=== PATIENT | male | born 1980 | race Caucasian/White ===

== ENCOUNTER 2023-12-05 21:20 | Inpatient (IN) | payer OTHER, SELFPAY ==
[2023-12-05] VITALS (8 sets, daily range): BP systolic 118–138; BP diastolic 74–105; BMI 26.2; BMI 26.5
--- NOTE | 2023-12-05 17:36 | ED.GENMED ---
History of Present Illness
General
Chief Complaint: Heart Rate Problem
Time Seen by Provider: 12/05/23 17:31
History of Present Illness
History of Present Illness:
HPI: The patient went to urgent care as he was having cough and some degree of shortness of breath. While there, he was found to be tachycardic and EMS was called. He was given albuterol with only some improvement of symptoms. He has a prominent
cough. He is found to be febrile upon arrival here.
EXAM:
GENERAL: Well appearing in no distress
HEENT: Moist oral mucosa
CARDIOVASCULAR: No murmurs, intermittently tachycardic heart rate, intermittently irregular rhythm, No chest wall tenderness
PULMONARY: No respiratory distress, breath sounds are somewhat diminished at the bases with no definite wheeze
ABDOMEN: Soft with no peritoneal signs, no tenderness
NEUROLOGIC: Excellent strength all extremities, no coordination deficits
PSYCHIATRIC: Appropriate mental status, normal insight and judgement
EXTREMITIES: Nontender, no edema, moves all extremities equally
SKIN: No rash, no lesions
TIME OF INITIAL ENCOUNTER: 5:30 PM
NUMBER AND COMPLEXITY OF PROBLEMS ADDRESSED AT THE ENCOUNTER
� Chronic conditions affecting care: No significant past medical history but does have a history of asthma
� Acute Exacerbation and/or Progression of Chronic Illness: This is an acute problem
� Differential Diagnosis includes: Reactive airway disease, acute asthma exacerbation, new onset A-fib, pneumonia, viral syndrome
AMOUNT AND/OR COMPLEXITY OF DATA TO BE REVIEWED AND ANALYZED
� I performed an independent evaluation of and my interpretation is:
EKG: A-fib 113 along with runs of sinus rhythm
CT:
X-rays: Chest x-ray suggest right middle lobe pneumonia
Laboratory Studies: Troponin negative, COVID-negative, white count and hemoglobin are normal, chemistries unremarkable, TSH unremarkable, magnesium low normal
Other:
� Review of other/old records: I reviewed the echo from 2019 which showed no significant abnormality read by Dr. Benson
� Clinical information was obtained by an independent historian: I spoke to at bedside
� Prescriptions/Medications Considered but not given: Considered albuterol however there is no significant wheezing he intermittently has rates near 200; held off on anticoagulation for now as he has a CHADS2 Vasc score of 0
� Further testing considered but not performed:
RISK OF COMPLICATIONS AND/OR MORBIDITY OR MORTALITY OF PATIENT MANAGEMENT
� Social determinants of health affecting care: Lives at home
� Discussion with other providers: I discussed case with Dr. Stover who recommends 30-day course of Eliquis if he were to convert in the ER. Dr. Pepe for admission as remains in atrial fibrillation and appears to be more
symptomatic related to pneumonia as opposed A-fib..
� Escalation of care including admission/observation vs risk of discharge considered: Although at times the patient is in sinus he frequently goes back into an atrial tachycardia with rates in the 180s to 190s. He was placed on
Cardizem bolus and drip and his fever was treated with Tylenol and he was also given IV fluids. He is heart rate is markedly improved but remains in an atrial fibrillation rhythm. Will continue Cardizem.
Phy Exam
Physical Exam
Physical Exam:
See HPI
Sepsis
Sepsis Screening
Sepsis Assessment: Sepsis
Sepsis Screen
Sepsis Screen: Sepsis
Date: 12/05/23
Time: 19:50
Course
Orders/Labs/Results
Orders:
Orders
12/05/23 17:35
Acetaminophen [Tylenol] 1,000 mg .ROUTE .STK-MED ONE
Acetaminophen [Tylenol] 1,000 mg PO NOW STA
CR Chest Portable - 1 View Urgent
Comment:
Reason For Exam: sob cough
Reason Study Needs to be Portable: Unable to Transport
12/05/23 17:36
0.9% Sodium Chloride 1000 ml [Nss] 1,000 ml IV BOLUS
Diltiazem 125 mg/125 ml Nss [Cardizem] 125 mg in 125 ml IV NOW
Initial dose in mg/hr, then titrate:: 5
Titrate to keep:: Heart rate 80-100 bpm
Titrate by mg/hr:: 5 mg/hr
Frequency of titrations (minutes):: 15
Maximum dose in mg/hr:: 15
Diltiazem HCl [Cardizem] 10 mg IV NOW STA
12/05/23 17:39
Basic Metabolic Panel Urgent
Complete Blood Count/With Diff Urgent
TSH Reflex To Free T4 Urgent
Troponin I Urgent
Blood Culture Urgent
KELLEE Source: Blood/Venous
Specimen Description:
Influenza A+B Rapid Molecular Urgent
KELLEE Source: Nasal Swab
Specimen Description:
12/05/23 17:45
Blood Culture Routine
KELLEE Source: Blood/Venous
Specimen Description:
12/05/23 17:59
COVID-19 Antigen Urgent
Source: Nasal Swab
Magnesium Urgent
Comment: ADD ON
Potassium Urgent
12/05/23 18:51
Add On- LAB Urgent
Tests Added?: tsh reflex fT4
Azithromycin 500 mg/250 ml [Zithromax Infusion] 500 mg in 250 ml IV NOW
CefTRIAXone [Rocephin] 1,000 mg IV NOW STA
12/05/23 19:07
Electrocardiogram (*1) Urgent
Reason for Study: Shortness of Breath
EKG- Treatment ONCE
12/05/23 19:10
Add On- LAB Urgent
Tests Added?: magnesium
12/05/23 19:34
Admit/Transfer Patient As Directed
Co-Sign Provider:
Level of Care: Inpatient admission
Assign to:: IMU- Intermediate Care
Physician / Group: Afshin
Diagnosis: Pneumonia, Sepsis, A-Fib
Reason for Hospitalization: Pneumonia, Sepsis, A-Fib
Expected length of stay greater than two midnights?: Yes
ELOS- Estimated Length of Stay in days: 3
I certify the patient meets the requirements for IP care: Yes
PRN Pain Medication Management As Directed
May give lesser potent ordered pain med per pt: Yes
preference::
Protocol:: Medication orders for pain may be administered in a
manner that supports deferring to patient preference
when the pt is:
- Requesting an ordered lesser potent pain medication.
Least to most potent pain medications are defined
as: acetaminophen < NSAID < tramadol < opioids
(morphine, oxycodone, hydromorphone).
- Requesting a lesser dose of the same medication IF
ORDERED.
- Requesting a less intrusive route of administration
if both routes are prescribed by the provider (PO <
IV).
12/05/23 19:35
Code Status As Directed
Resuscitation Status: Full Code
Abnormal Lab Results
12/05/23
17:39
Absolute Lymphs (auto) 1.0 L 10^3/uL
(1.2-3.4)
Neutrophils % 75.4 H %
(42.2-75.2)
Lymphocytes % 14.9 L %
(20.5-51.1)
Glucose 102 H mg/dl
(70-99)
Calcium 8.3 L mg/dl
(8.4-10.2)
12/05/23 17:39
12/05/23 17:59
Vital Signs
Initial and Last Documented VS:
Initial Vital Signs
Pulse Resp Pulse Ox
130 36 96
12/05/23 17:29 12/05/23 17:29 12/05/23 17:29
Last Documented Vital Signs
Temp Pulse Resp BP Pulse Ox
99.7 F 105 29 123/92 94
12/05/23 19:09 12/05/23 18:45 12/05/23 18:45 12/05/23 18:00 12/05/23 18:45
*Critical Care Note
Total Time (30-74mins, 75-104mins- exclusive of procedures): 45 minutes
comment:
The patient's heart rate approaches 200 transiently. He was placed on Cardizem bolus and drip and vital signs were very closely monitored. I also emergently discussed case with cardiology.
ED Attending Note
-
Portions of this chart may have been created with voice recognition software.� Occasional wrong word or��sound alike� substitutions may have occurred due to the inherent limitations of voice recognition software.
Discharge Plan
Departure
Patient Disposition: Admit
Date of Disposition: 12/05/23
Time of Disposition: 19:44
Presentation/result/management discussed w/ accepting MD/DO: Hospitalist
Discharge Problem:
Pneumonia
Prescriptions:
No Action
cetirizine 10 mg Tablet
10 mg PO HS
atorvastatin 10 mg Tablet
10 mg PO HS
Theragen Tablet
1 tab PO DAILY
albuterol sulfate 90 mcg/actuation Hfa Aerosol Inhaler
2 puff INHALATION R Q6HPRN PRN (Reason: sob)
escitalopram oxalate 20 mg Tablet
20 mg PO HS
mesalamine 1,000 mg Suppository
1 g CO HS
mesalamine 1.2 gram Tablet,Delayed Release (Dr/Ec)
3.6 g PO QPM
Visbiome 112.5 billion cell Capsule
1 cap PO DAILY
fluticasone furoate-vilanterol [Breo Ellipta] 200-25 mcg/dose Blister With Device
1 inh INHALATION R DAILYPRN PRN (Reason: sob)
Referrals:
Dary Patel MD [Family Provider] -
Interventions
Interventions:
*Risk Screen - Suicide Last Done: 12/05/23 17:48
*General Assessment Last Done: 12/05/23 17:48
*Neglect/Abuse Screening Last Done: 12/05/23 17:48
ED- Fall Risk Assessment Last Done: 12/05/23 17:50
*ED COVID-19 Vaccine History Last Done: 12/05/23 17:48
ED- Cardiac Assessment Last Done: 12/05/23 17:50
ED- Pulmonary Assessment Last Done: 12/05/23 17:50
Discharge Date and Time
Print Language: MACEDONIAN
[2023-12-05] MEDS: TYLENOL 1000 MG PO (17:37)
[2023-12-05] MEDS: NSS 1000 IV (17:38)
[2023-12-05] MEDS: CARDIZEM 10 MG IV (17:43)
[2023-12-05] MEDS: CARDIZEM 125 IV (17:44)
[2023-12-05 17:46] LABS: % Basophils 0.4 % (0-2); % Eosinophils 0.1 % (0-6); % Immature Granulocytes 0.3 % (0-0.5); % Lymphocytes 14.9 % (20.5-51.1); % Monocytes 8.9 % (1.7-9.3); % Neutrophils 75.4 % (42.2-75.2); Absolute Monocytes 0.6 10^3/uL (0.1-0.6); Absolute Neutrophils 5.2 10^3/uL (1.4-6.5); Hematocrit 40.8 % (39.0-52.0); Hemoglobin 14.3 g/dL (13.0-18.0); Mean Corpuscular Hgb 30.4 pg (27.0-31.0); Mean Corpuscular Volume 86.8 fL (80.0-94.0); Mean Platelet Volume 9.8 fL (7.4-10.4); Nucleated Red Blood Cells % 0 % (-); Platelet Count 183 10^3/uL (130-400); Red Cell Dist. Width 11.9 % (11.5-14.5); White Blood Cell Count 6.9 10^3/uL (4.8-10.8)
[2023-12-05 18:00] LABS: Blood Urea Nitrogen 20 mg/dl (9-20); Calcium 8.3 mg/dl (8.4-10.2); Carbon Dioxide 22 mmol/L (22-30); Chloride 104 mmol/L (98-107); Estimated Creatinine Clearance 103 ml/min; Glucose 102 mg/dl (70-99); Sodium 139 mmol/L (135-145); eGFR > 60.00
[2023-12-05 18:02] LABS: COVID-19 Antigen Negative (Negative)
[2023-12-05 18:09] LABS: Troponin I < 0.012 ng/ml
[2023-12-05 18:16] LABS: Potassium 3.7 mmol/L (3.5-5.1)
[2023-12-05] MEDS: ZITHROMAX INFUSION 250 IV (19:00)
[2023-12-05] MEDS: ROCEPHIN 1000 MG IV (19:00)
[2023-12-05 19:35] LABS: TSH Reflex To Free T4 1.33 uIU/ml (0.47-4.68)
--- NOTE | 2023-12-05 19:38 | HPS.HSE ---
Family Physician
-
Family Physician: Dary Patel
Chief Complaint
-
SOB
History of Present Illness
Patient is a 43y M with PMH significant for asthma and IBD who presents to ED complaining of SOB and wheezing x 3 days. Patient states that his symptoms started on Tuesday with SOB and audible wheezing. His symptoms have waxed and waned since
that time - becoming markedly worse today and prompting him to present to Urgent Care. At Urgent Care, patient was noted to be tachycardic with rate in the 160s and was referred immediately to the ED.
Patient notes occasional, non-productive cough. He has headache, fevers / chills and occasional sense of heart racing.
No chest pain. No N/V/D. No urinary complaints. No muscle / joint aches.
Patient's daughter was apparently ill with respiratory complaints about 2 weeks ago. She had coughing paroxysms that led to 'spitting up'.
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
Patient further reports construction ongoing in his home recently including dust / debris and paint fumes.
Medical History
Past Medical History
Past Medical History: Reports Other
Additional Past Medical History:
Exercise-Induced Asthma
Anxiety / Depression
IBD - ? UC
Dyslipidemia
Past Surgical History: Reports None
Social History
Unable to obtain full social history at this time due to: Dementia
Tobacco: Non-smoker
Alcohol: None
Drug: None
Personal:
Living: With Family
Family History
Family History: Other (Mother: Premature CAD, Rheumatoid Arthritis Father: Depression)
Allergies / Home Medications
Allergies reflects when Allergies were last updated in [employer]
Home Medications with original date entered in [employer]
Allergy/Medication List:
Allergies
Allergy/AdvReac Type Severity Reaction Status Date / Time
metaxalone [From Skelaxin] Allergy Rash Verified 12/05/23 17:29
Sulfa (Sulfonamide Allergy Rash Verified 12/05/23 17:29
Antibiotics)
Home Medications
Lactobac no.2-Bifidobac no.1-S. thermo 112.5 billion cell capsule (Visbiome) 1 cap PO DAILY 12/05/23
albuterol sulfate 90 mcg/actuation aerosol inhaler 2 puff inhalation R Q6HPRN PRN sob 12/05/23
atorvastatin 10 mg tablet 10 mg PO HS 12/05/23
cetirizine 10 mg tablet 10 mg PO HS 12/05/23
escitalopram oxalate 20 mg tablet 20 mg PO HS 12/05/23
fluticasone furoate 200 mcg-vilanterol 25 mcg/dose inhalation powder (Breo Ellipta) 1 inh inhalation R DAILYPRN PRN sob 12/05/23
mesalamine 1,000 mg rectal suppository 1 g CA HS 12/05/23
mesalamine 1.2 gram tablet,delayed release 3.6 g PO QPM 12/05/23
therapeutic multivitamin 1 tab PO DAILY 12/05/23
Review of Systems
-
History Source: Patient
A 12 point ROS was completed and negative except as noted: Yes
Constitutional: Reports Fever, Fatigue and Chills
EENT: Denies Sore Throat
Respiratory: Reports Cough and Trouble Breathing
Cardiac: Reports Palpitations; Denies Chest Pain, Diaphoresis or Syncope
Abdomen/GI: Denies Abdominal Pain, Nausea, Vomiting or Diarrhea
: Denies Dysuria or Flank Pain
Musculoskeletal: Denies Joint Pain or Edema
Neurological: Reports Headache; Denies Dizzy
Psych: Denies Depression or Anxiety
Physical Exam
Vital Signs
Vital Signs
Temp Pulse Resp BP Pulse Ox
99.7 F 105 29 123/92 94
12/05/23 19:09 12/05/23 18:45 12/05/23 18:45 12/05/23 18:00 12/05/23 18:45
Physical Exam
General: Other (43y M somewhat ill-appearing. In mild distress due to dyspnea.)
HEENT: Moist mucous membranes
Respiratory: Other (Diminished breath sounds throughout. No audible wheeze / rales / rhonchi at present.)
Cardiac: S1/S2, Irregular Rhythm and Tachycardia; No Murmur
GI: Soft, Non Tender, Non Distended and Normal Bowel Sounds
Musculoskeletal: No Clubbing, No Cyanosis and No Edema
Neuro: AO x 3
Laboratory Results
-
12/05/23 17:39
12/05/23 17:59
Laboratory Results
Total Bilirubin Cancelled 12/05/23 17:39
AST Cancelled 12/05/23 17:39
ALT Cancelled 12/05/23 17:39
Alkaline Phosphatase Cancelled 12/05/23 17:39
Troponin I < 0.012 ng/ml 12/05/23 17:39
Impression/Plan
-
A/P: Patient is a 43y M with PMH significant for asthma and IBD who presents to ED complaining of cough and SOB x 3-4 days.
RLL Pneumonia
Sepsis secondary to the above
- Admit for further evaluation and treatment.
- Patient presents with fever and tachycardia with symptoms and CXR consistent with pneumonia.
- Abx with ceftriaxone and doxycycline for now.
- Follow-up culture data / serologies / etc.
- Supportive care including IVFs, O2 support, etc.
- Follow for clinical improvement.
Asthma with Acute Exacerbation - secondary to the above
- Markedly diminished breath sounds at present and patient notes audible wheezing at home.
- IV steroids for now - taper as able / transition to PO.
- Albuterol nebs.
- Follow for clinical improvement.
Atrial Fibrillation - New
- Newly noted A-Fib with RVR in setting of acute illness / sepsis.
- Continue IV diltiazem for now for rate control.
- Will begin Eliquis for now / for at least 6 months.
- Cardiology evaluation.
- May be isolated / 'lone' event due to acute illness, etc.
IBD / UC
- Patient currently undergoing evaluation for formal diagnosis.
- Was scheduled for colonoscopy next week.
- Continue current mesalamine dosing.
- Follow for any acute GI complaints.
DVT Prophylaxis: Eliquis started as noted above.
Code Status: Full
[2023-12-05 19:42] LABS: Magnesium 1.7 mg/dl (1.6-2.3)
[2023-12-05] MEDS: ROWASA, CANASA SUPPOSITORY RECTAL (22:19)
[2023-12-05] MEDS: LR 1000 IV (22:29)
[2023-12-05] MEDS: LIPITOR 10 MG PO (22:30)
[2023-12-05] MEDS: ELIQUIS 5 MG PO (22:30)
[2023-12-05] MEDS: DECADRON 6 MG IV (22:30)
[2023-12-05] MEDS: ZYRTEC 10 MG PO (22:30)
[2023-12-05] MEDS: VIBRAMYCIN 100 MG PO (22:30)
[2023-12-05] MEDS: ROBITUSSIN DM 5 ML PO (22:30)
[2023-12-05] MEDS: LEXAPRO 20 MG PO (22:30)
--- NOTE | 2023-12-05 23:33 | PTCARENOTE ---
pt admitted from the ED, pt is AAOx3- able to make needs known. pt on cardizem gtt @ 15ml/hr, pt in and out of a-fib/NSR. 96% RA, non-productive cough noted, lungs course, tachypneic, SOB on exertion. pt admits to anxiety, having wave of nausea that
passed. PRN robitussin ordered for harsh cough. pt able to walk into bathroom x1 assist without issues. IV fluids hung and infusing. urine specimen collected and sent down to lab. pt oriented to new room, call philip within reach, care ongoing.
[2023-12-06] VITALS (10 sets, daily range): BP systolic 123–152; BP diastolic 67–94; BMI 26.4
--- NOTE | 2023-12-06 04:58 | PTCARENOTE ---
pt remains in NSR throughout the night, rate in 60s, increases with ambulation but back down with rest. notified covering CLERICAL OFFICE WORKER- advised to keep cardizem gtt at 5ml/hr if patient BP and HR tolerating. will monitor both. care ongoing.
[2023-12-06] MEDS: LR 1000 IV ×2 (05:06→12:07)
[2023-12-06] MEDS: DECADRON 6 MG IV (05:06)
[2023-12-06] MEDS: CARDIZEM 125 IV (05:24)
[2023-12-06 05:31] LABS: Hematocrit 38.2 % (39.0-52.0); Hemoglobin 13.2 g/dL (13.0-18.0); Mean Corp Hgb Conc. 34.6 g/dL (33.0-37.0); Mean Corpuscular Hgb 30.3 pg (27.0-31.0); Mean Corpuscular Volume 87.8 fL (80.0-94.0); Mean Platelet Volume 10.3 fL (7.4-10.4); Platelet Count 180 10^3/uL (130-400); Red Blood Cell Count 4.35 10^6/uL (4.70-6.10); Red Cell Dist. Width 12.2 % (11.5-14.5); White Blood Cell Count 5.1 10^3/uL (4.8-10.8)
[2023-12-06 05:57] LABS: Blood Urea Nitrogen 16 mg/dl (9-20); Calcium 8.8 mg/dl (8.4-10.2); Carbon Dioxide 24 mmol/L (22-30); Chloride 106 mmol/L (98-107); Estimated Creatinine Clearance 120 ml/min; Glucose 148 mg/dl (70-99); Potassium 4.8 mmol/L (3.5-5.1); Sodium 141 mmol/L (135-145); eGFR > 60.00
--- NOTE | 2023-12-06 09:01 | CON.CAR ---
Addendum entered and electronically signed by Daniel Chang MD (Ellie) 12/06/23 10:44:
I saw and examined the patient.
The TONG CARRIER's note was reviewed and I agree with the note.
Comment: 43 year old male with asthma, dyslipidemia, UC, and anxiety who presented with shortness of breath, found to have acute pneumonia and atrial fibrillation with rapid ventricular response. Patient reports that he started feeling short of
breath on Tuesday, was taking a lot of albuterol, and finally went to urgent care yesterday. At urgent care they noted his heart rate was 160 and called EMS. Atrial fibrillation broke in the ER after 5 mg IV diltiazem. He denies chest pain,
palpitations, lightheadedness, dizziness, syncope or presyncope. He has no history of atrial fibrillation. He does have hyperlipidemia for which he is on atorvastatin 10 mg daily. He also carries a diagnosis of anxiety and ulcerative colitis. In
terms of family history both parents have ischemic heart disease with bypass surgery. He does not drink alcohol, smoke cigarettes, or use drugs. His reports that he does not snore. On exam he is normotensive, with heart rate in the 60s,
satting well on room air. He is an anxious appearing young male with regular rate and rhythm, no murmurs rubs or gallops, no pedal edema, and decreased breath sounds at the bases bilaterally. Labs are notable for TSH within normal limits and
negative troponin. Review of telemetry shows rate controlled A-fib until about 9:00 last night when he went into sinus rhythm. Heart rates are in the 60s to 70s currently. Twelve-lead ECG from 5 AM today shows normal sinus rhythm with possible
left atrial enlargement and no ischemic changes. Transthoracic echocardiogram is pending.
In summary, this is a 43-year-old male with a history of asthma and ulcerative colitis who presents with new onset atrial fibrillation in the setting of acute pneumonia. His A-fib with RVR was likely triggered by his infection. He does not have
any other clear risk factors for atrial fibrillation. We will check an echocardiogram today. He should have an outpatient sleep study. After discharge, he will continue on diltiazem 120 mg daily. Unfortunately he is not a good candidate for a
pill in the pocket approach because his A-fib is not symptomatic. He should remain on anticoagulation with apixaban 5 mg twice daily for 1 month given chemical cardioversion. He has a [id number] score of 0, so he can stop anticoagulation after 1
month. He should continue on atorvastatin for history of hyperlipidemia. He will call our office to arrange follow-up. I have let the office know to expect his call.
Original Note:
Consultation
Consultation Request
Date/Time Consultation Requested: 12/05/2023 22:00
Date/Time Consultation Performed: 12/06/2023 08:45
Requesting Provider: Dr. Pepe
Performing Provider: SONA Juan for Dr. Chang
Reason for Consultation: Atrial fibrillation with right ventricular response
Medical History
-
Chief Complaint: Shortness of breath
History of Present Illness:
Luis Alfredo Escobar is a 43 year old male with asthma, dyslipidemia, UC, and anxiety who presented with shortness of breath. Initially he presented with shortness of breath and cough to urgent care. He was referred to the ER for HR in the 160s. He presented
in atrial fibrillation with rapid ventricular response. He was started on a diltiazem drip and given apixaban. He is back in sinus rhythm. He also has PNA which is being treated by the primary service. His shortness of breath has improved. He is
having no chest pain.
Past Medical History
Past Medical History: Asthma, Hypercholesterolemia and Psychiatric (Anxiety)
Past Surgical History: Tonsilectomy
Social History
Tobacco: Non-Smoker
Alcohol: None
Personal:
Living: With Family
Employment: Employed (IT)
Family History
Family History: CAD
Allergies / Home Medications
Allergy/AdvReac Type Severity Reaction Status Date / Time
metaxalone [From Skelaxin] Allergy Rash Verified 12/05/23 17:29
Sulfa (Sulfonamide Allergy Rash Verified 12/05/23 17:29
Antibiotics)
�Medication �Instructions �Recorded �Confirmed �Type
Lactobac no.2-Bifidobac no.1-S. 1 cap PO DAILY 12/05/23 12/05/23 History
thermo 112.5 billion cell capsule
(Visbiome)
albuterol sulfate 90 mcg/actuation 2 puff inhalation R Q6HPRN PRN sob 12/05/23 12/05/23 History
aerosol inhaler
atorvastatin 10 mg tablet 10 mg PO HS 12/05/23 12/05/23 History
cetirizine 10 mg tablet 10 mg PO HS 12/05/23 12/05/23 History
escitalopram oxalate 20 mg tablet 20 mg PO HS 12/05/23 12/05/23 History
fluticasone furoate 200 1 inh inhalation R DAILYPRN PRN sob 12/05/23 12/05/23 History
mcg-vilanterol 25 mcg/dose
inhalation powder (Breo Ellipta)
mesalamine 1,000 mg rectal 1 g NJ HS 12/05/23 12/05/23 History
suppository
mesalamine 1.2 gram tablet,delayed 3.6 g PO QPM 12/05/23 12/05/23 History
release
therapeutic multivitamin 1 tab PO DAILY 12/05/23 12/05/23 History
Review of Systems
-
History Source: Patient
All other systems: Negative unless noted
Constitutional: Fever and Fatigue
EENT: No Symptoms
Respiratory: Cough
Cardiac: No Symptoms
Abdomen/GI: No Symptoms
: No Symptoms
Musculoskeletal: No Symptoms
Skin: No Symptoms
Neurological: No Symptoms
Endocrine: No Symptoms
Hematologic/Lymphatic: No Symptoms
Physical Exam
Vital Signs
Temp Pulse Resp BP Pulse Ox
99.0 F 67 27 130/78 96
12/06/23 07:37 12/06/23 06:00 12/06/23 06:00 12/06/23 06:00 12/06/23 06:00
Lab Results
12/06/23 05:17
12/06/23 05:17
Troponin I < 0.012 ng/ml 12/05/23 17:39
Impression / Plan
-
Atrial fibrillation with RVR, new
-Back in sinus rhythm
-Transition to oral diltiazem
-Oral Anticoagulation: Apixaban 5mg BID for one month
-[id number]: score 0 (<del>Heart</del> <del>failure,</del> <del>HTN,</del> <del>age</del> <del>75</del> <del>or</del> <del>more,</del> <del>Diabetes</del> <del>Mellitus,</del> <del>prior</del> <del>Stroke/TIA,</del> <del>Vascular</del>
<del>disease,</del> <del>age</del> <del>65-74,</del> <del>female</del> <del>gender</del>)
PNA, per primary
Asthma, on steriods, per primary
Dyslipidemia, on atorvastatin
Ulcerative colitis, follows with GI
[2023-12-06] MEDS: PROTONIX 40 MG PO (09:10)
[2023-12-06] MEDS: ELIQUIS 5 MG PO ×2 (09:11→20:46)
[2023-12-06] MEDS: VIBRAMYCIN 100 MG PO ×2 (09:11→20:45)
[2023-12-06] MEDS: VISBIOME 1 CAP PO (09:11)
[2023-12-06] MEDS: CARDIZEM CD 120 MG PO (10:08)
--- NOTE | 2023-12-06 12:26 | W.PN.HOSP.TC ---
Today's Communication/Plan
-
Monitor vital signs see plan
Transfer to telemetry
Continue with antibiotics
Echocardiogram
wean steroids
Assessment / Plan
Assessment / Plan
General: No acute distress
HEENT: Moist mucous membranes
Respiratory: Other (Diminished breath sounds throughout. No audible wheeze / rales / rhonchi at present.)
Cardiac: S1/S2, regular Rhythm; No Murmur
GI: Soft, Non Tender, Non Distended and Normal Bowel Sounds
Musculoskeletal: No Clubbing, No Cyanosis and No Edema
Neuro: AO x 3
RLL Pneumonia
Sepsis secondary to the above
- Patient presents with fever and tachycardia with symptoms and CXR consistent with pneumonia.
- Abx with ceftriaxone and doxycycline for now.
- Follow-up culture data / serologies / etc.
pertussis check on admission which is pending
Asthma with Acute Exacerbation - secondary to the above
Slowly improving, continue with Decadron, wean
- Albuterol nebs.
Atrial Fibrillation - New
- Newly noted A-Fib with RVR in setting of acute illness / sepsis.
Now in normal sinus rhythm. Does not have significant CHADVASC. Per cardiology he should be on Eliquis for 1 month and then can stop.
cardiology following
ech0
IBD / UC
- Patient currently undergoing evaluation for formal diagnosis.
- Was scheduled for colonoscopy next week.
- Continue current mesalamine dosing.
- Follow for any acute GI complaints.
DVT Prophylaxis: Eliquis started as noted above.
Code Status: Full
Anticipated Discharge: Within 24 hours
Subjective/Interval History
-
Date of Service: December 06, 2023
denies pain
Objective Data
-
Labs:
Laboratory Results
12/06/23
05:17
WBC 5.1
Hgb 13.2
Hct 38.2 L
Plt Count 180
Sodium 141
Potassium 4.8 D
Chloride 106
Carbon Dioxide 24
BUN 16
Creatinine 0.8
Glucose 148 H
Calcium 8.8
Vital Signs:
Vital Signs
Temp Pulse Resp BP Pulse Ox
98.4 F 67 27 130/78 96
12/06/23 11:38 12/06/23 06:00 12/06/23 06:00 12/06/23 06:00 12/06/23 06:00
I&O
12/05/23 12/06/23 12/07/23
06:59 06:59 06:59
Intake Total 300 / 300
Output Total 400 / 400
Balance -400 / -400 300 / 300
[2023-12-06] MEDS: DECADRON 4 MG IV ×2 (13:33→20:46)
[2023-12-06] MEDS: FLUSH (NSS) 2 FLUSH IV (13:34)
--- NOTE | 2023-12-06 16:13 | CM ---
Patient with Dx RLL Pneumonia, Sepsis, Asthma w Acute Exacerbation, new Afib, IBD/UC. Room air. Receiving IV ceftriaxone, IV Decadron. Echo today.
Met with patient who resides with his and 2 children in a 2 story house.
The patient has been independent in ADLs and ambulation.
His only DME is a pulse oximeter.
No prior VN.
PCP - Dary Patel
[facility]
No CM d/c needs identified.
Plan home.
[2023-12-06] MEDS: ROCEPHIN 1000 MG IV (17:41)
[2023-12-06] MEDS: STERILE WATER FOR INJECTION 10 ML IV (17:41)
[2023-12-06] MEDS: LEXAPRO 20 MG PO (20:46)
[2023-12-06] MEDS: ZYRTEC 10 MG PO ×2 (20:46)
[2023-12-06] MEDS: ROWASA, CANASA SUPPOSITORY 1000 MG RECTAL (20:46)
[2023-12-06] MEDS: LIPITOR 10 MG PO (20:46)
[2023-12-07 03:57] VITALS: BP 141/102
[2023-12-07] MEDS: ROBITUSSIN DM 5 ML PO (04:06)
[2023-12-07 04:08] VITALS: BMI 25.9
[2023-12-07 04:59] LABS: % Basophils 0.1 % (0-2); % Immature Granulocytes 0.4 % (0-0.5); % Lymphocytes 13.3 % (20.5-51.1); % Monocytes 4.4 % (1.7-9.3); % Neutrophils 81.8 % (42.2-75.2); Absolute Monocytes 0.3 10^3/uL (0.1-0.6); Absolute Neutrophils 6.4 10^3/uL (1.4-6.5); Hematocrit 40.5 % (39.0-52.0); Mean Corp Hgb Conc. 34.6 g/dL (33.0-37.0); Mean Corpuscular Hgb 31.1 pg (27.0-31.0); Mean Platelet Volume 10.6 fL (7.4-10.4); Nucleated Red Blood Cells % 0 % (-); Platelet Count 218 10^3/uL (130-400); Red Cell Dist. Width 12.3 % (11.5-14.5); White Blood Cell Count 7.8 10^3/uL (4.8-10.8)
[2023-12-07 05:17] LABS: Blood Urea Nitrogen 21 mg/dl (9-20); Calcium 9.7 mg/dl (8.4-10.2); Carbon Dioxide 24 mmol/L (22-30); Chloride 105 mmol/L (98-107); Estimated Creatinine Clearance > 125 ml/min; Glucose 137 mg/dl (70-99); Sodium 144 mmol/L (135-145); eGFR > 60.00
[2023-12-07] MEDS: DECADRON 4 MG IV (06:10)
[2023-12-07 06:13] VITALS: BP 141/90
--- NOTE | 2023-12-07 07:07 | PTCARENOTE ---
No acute events overnight. Remained in NSR. Patient complains of anxiety from the IV steroids. Emotional support provided.
[2023-12-07] MEDS: PROTONIX 40 MG PO (07:38)
[2023-12-07] MEDS: ELIQUIS 5 MG PO (07:38)
[2023-12-07] MEDS: VISBIOME PO ×2 (07:38→12:03)
[2023-12-07] MEDS: VIBRAMYCIN 100 MG PO (07:38)
[2023-12-07] MEDS: CARDIZEM CD 120 MG PO (07:38)
--- NOTE | 2023-12-07 08:29 | W.PN.CD ---
Today's Communication / Plan
-
Continue diltiazem 120 mg daily
Continue apixaban 5 mg twice daily for 1 month
Okay to discharge from cardiology perspective
Impression / Plan
-
43-year-old male with a history of asthma and ulcerative colitis who presents with new onset atrial fibrillation in the setting of acute pneumonia.
Atrial fibrillation with RVR, new
-Back in sinus rhythm
-Continue oral diltiazem
-Oral Anticoagulation: Apixaban 5mg BID for one month
-[id number]: score 0 (<del>Heart</del> <del>failure,</del> <del>HTN,</del> <del>age</del> <del>75</del> <del>or</del> <del>more,</del> <del>Diabetes</del> <del>Mellitus,</del> <del>prior</del> <del>Stroke/TIA,</del> <del>Vascular</del>
<del>disease,</del> <del>age</del> <del>65-74,</del> <del>female</del> <del>gender</del>)
-Needs outpatient sleep study
-He will call our office to arrange follow-up
PNA, per primary
Asthma, on steriods, per primary
Dyslipidemia, on atorvastatin
Ulcerative colitis, follows with GI
Subjective: Patient feels well this morning. Happy to hear that he had no A-fib on telemetry overnight. Still mildly short of breath. Echocardiogram from yesterday shows normal LVEF and no valvular disease.
Physical Exam
Vital Signs/Labs
Vital Signs
Temp Pulse Resp BP Pulse Ox
97.6 F 86 27 141/90 96
12/07/23 07:50 12/07/23 07:38 12/06/23 16:00 12/07/23 07:38 12/06/23 22:58
12/06/23 12/07/23 12/08/23
06:59 06:59 06:59
Actual Weight 80.9 kg 79.4 kg
12/07/23 04:03
12/07/23 04:03
Magnesium 1.7 mg/dl (1.6-2.3) 12/05/23 17:59
LAB Results
12/05/23
17:39
Troponin I < 0.012
Physical Exam
Constitutional: No acute distress and Comfortable
Cardiovascular: Rhythm & rate is regular, Pedal edema is absent, JVD pressure is normal and Murmur/rub/gallop absent
Respiratory: Respiratory effort normal and Lungs clear to auscul.
Data Reviewed
-
Date of Service: December 07, 2023
Medical Decision Making: Reviewed Test Results
EKG: Tracing Personally Visualized and interpreted
Echo: Tracing Personally Visualized and interpreted
Labs: Labs Reviewed by me
Total Time Spent with Patient (in minutes): 25
[2023-12-07 11:42] VITALS: BP 147/86
--- NOTE | 2023-12-07 11:49 | W.PN.HOSP.TC ---
Today's Communication/Plan
-
monitor vitals
see plan
dc on PO prednisone taper,abx
cw eliquis,dilt
time of discharge 38 minutes
Assessment / Plan
Assessment / Plan
General: No acute distress
HEENT: Moist mucous membranes
Respiratory: Other (Diminished breath sounds throughout. No audible wheeze / rales / rhonchi at present.)
Cardiac: S1/S2, regular Rhythm; No Murmur
GI: Soft, Non Tender, Non Distended and Normal Bowel Sounds
Musculoskeletal: No Clubbing, No Cyanosis and No Edema
Neuro: AO x 3
RLL Pneumonia
Sepsis secondary to the above
- Patient presents with fever and tachycardia with symptoms and CXR consistent with pneumonia.
- Abx with ceftriaxone and doxycycline for now. dc on PO abx
bcx neg for 24 hrs; no further fever
pertussis check on admission which is pending
Asthma with Acute Exacerbation - secondary to the above
Slowly improving, continue with Decadron, wean; dc on PO prednisone wean
- Albuterol nebs.
Atrial Fibrillation - New
- Newly noted A-Fib with RVR in setting of acute illness / sepsis.
Now in normal sinus rhythm. Does not have significant CHADVASC. Per cardiology he should be on Eliquis for 1 month and then can stop.
cardiology following
ech0
IBD / UC
- Patient currently undergoing evaluation for formal diagnosis.
- Was scheduled for colonoscopy next week.
- Continue current mesalamine dosing.
- Follow for any acute GI complaints.
DVT Prophylaxis: Eliquis started as noted above.
Code Status: Full
Anticipated Discharge: Today
Subjective/Interval History
-
Date of Service: December 07, 2023
denies pain
Objective Data
-
Labs:
Laboratory Results
12/07/23
04:03
WBC 7.8
Hgb 14.0
Hct 40.5
Plt Count 218 D
Sodium 144
Potassium 5.0
Chloride 105
Carbon Dioxide 24
BUN 21 H
Creatinine 0.7
Glucose 137 H
Calcium 9.7
Vital Signs:
Vital Signs
Temp Pulse Resp BP Pulse Ox
98.2 F 74 20 147/86 98
12/07/23 11:48 12/07/23 11:42 12/07/23 11:42 12/07/23 11:42 12/07/23 11:42
I&O
12/06/23 12/07/23 12/08/23
06:59 06:59 06:59
Intake Total 300 / 300 480 / 480
Output Total 400 / 400
Balance -400 / -400 300 / 300 480 / 480
--- NOTE | 2023-12-07 12:00 | W.DCSUMMARY ---
Discharge Summary
Discharge Data
Date of Admission: 12/05/23
Date of Discharge: 12/07/23
-
Pending Results: No
Hospital Course
43-year-old male with past medical history of asthma, IBD/UC came to the hospital with right lower lobe pneumonia and new onset of atrial fibrillation with RVR. Patient was able to be converted on his own to normal sinus rhythm on this
hospitalization. Patient was seen by cardiology throughout hospitalization who recommended Eliquis for 1 month and patient was started on oral Cardizem. Echocardiogram did not show any signs of low ejection fraction. For his pneumonia he was
initially started on IV antibiotic which improved his symptoms. On discharge his antibiotics was changed to oral. Once his symptoms continue to improve, he was then discharged home with instructions to follow-up with all his physicians outpatient.
Discharge Plan
-
Patient Disposition: Home (Routine Discharge)
Discharge Diagnosis/Procedures: New onset atrial fibrillation with rapid ventricular rate
Community-acquired pneumonia
Asthma exacerbation
Diet: As tolerated
Activity: As tolerated
Driving Restrictions: As prior to admission
Bathing Restrictions: None
Referrals:
Daniel Chang MD ([facility]) [Active] - in two to four weeks
Dary Patel MD [Family Provider] - in less than 1 week
Prescriptions:
New
acetaminophen 325 mg Tablet
650 mg PO Q4HPRN PRN (Reason: Mild Pain / Temp > 101) Qty: 0 0RF
doxycycline hyclate 100 mg Capsule
100 mg PO Q12 Qty: 12 0RF
diltiazem HCl 120 mg Capsule,Extended Release 24hr
120 mg PO DAILY Qty: 30 0RF
Eliquis 5 mg Tablet
5 mg PO BID Qty: 60 0RF
cefdinir 300 mg capsule
300 mg PO BID Qty: 12 0RF
pantoprazole 40 mg Tablet,Delayed Release (Dr/Ec)
40 mg PO DAILY Qty: 30 0RF
prednisone 10 mg Tablet
See Rx Instructions .ROUTE .COMPLEX Qty: 18 0RF
Rx Instructions:
Take By Mouth:
30 mg daily x3 days,
20 mg daily x3 days, 10 mg daily x3 days.
Continued
cetirizine 10 mg Tablet
10 mg PO HS
atorvastatin 10 mg Tablet
10 mg PO HS
therapeutic multivitamin Tablet
1 tab PO DAILY
albuterol sulfate 90 mcg/actuation Hfa Aerosol Inhaler
2 puff INHALATION R Q6HPRN PRN (Reason: sob)
escitalopram oxalate 20 mg Tablet
20 mg PO HS
mesalamine 1,000 mg Suppository
1 g SC HS
mesalamine 1.2 gram Tablet,Delayed Release (Dr/Ec)
3.6 g PO QPM
Visbiome 112.5 billion cell Capsule
1 cap PO DAILY
fluticasone furoate-vilanterol [Breo Ellipta] 200-25 mcg/dose Blister With Device
1 inh INHALATION R DAILYPRN PRN (Reason: sob)
Discharge Orders:
Discharge Patient (As Directed); Ordered 12/07/23
Ordered By: Yves Elizondo
Discharge Date and Time
Discharge Date/Time: 12/07/23 12:46
Print Language: CAMBODIAN
--- NOTE | 2023-12-07 12:12 | CM ---
Met with patient who was preparing for discharge. The patient says he feels ready to go home today. His was at the bedside and will provide transport home.
No CM d/c needs identified.
Plan home today.
[2023-12-08 15:46] LABS: Bordetella Pertussis Ab, IgA 0.1 IV (<=1.1); Bordetella Pertussis Ab, IgG 1.79 IV (<=1.04); Bordetella Pertussis Ab, IgM 0.3 IV (<=1.1)
== END 2023-12-07 12:46 | disposition home or self-care (01) | DRG 871 ==
LOC: IMU 21:20
PROVIDERS: ADMITTING PHYSICIAN Hospitalist; ATTENDING PHYSICIAN Internal Medicine; EMERGENCY PHYSICIAN Emergency Medicine; FAMILY PHYSICIAN Internal Medicine; OTHER PHYSICIAN Student in an Organized Health Care Education/Training Program
DX: A41.9 Sepsis, unspecified organism (principal); J18.9 Pneumonia, unspecified organism; F03.93 Unspecified dementia, unspecified severity, with mood disturbance; F03.94 Unspecified dementia, unspecified severity, with anxiety; J45.901 Unspecified asthma with (acute) exacerbation; K51.90 Ulcerative colitis, unspecified, without complications; F32.A Depression, unspecified; J45.990 Exercise induced bronchospasm; E78.00 Pure hypercholesterolemia, unspecified; I48.91 Unspecified atrial fibrillation; Z79.899 Other long term (current) drug therapy; Z88.2 Allergy status to sulfonamides; Z88.8 Allergy status to other drugs, medicaments and biological substances; Z81.8 Family history of other mental and behavioral disorders; Z82.49 Family history of ischemic heart disease and other diseases of the circulatory system
CPT/HCPCS: 71045; 80048; 83735; 84132; 84443; 84484; 85025; 85027; 86615; 87040; 87449; 87502; 87811; 87899; 93005; 93306; 96361; 96374; 96375; 99291

== ENCOUNTER → 2024-01-02 12:30 | Outpatient (REF) | payer OTHER, SELFPAY | LOC: RCS 12:30 | PROVIDERS: ATTENDING PHYSICIAN Nurse Practitioner; FAMILY PHYSICIAN Nurse Practitioner Family | DX: I48.0 Paroxysmal atrial fibrillation (principal) | CPT/HCPCS: 93225; 93226 ==

== ENCOUNTER → 2024-01-06 08:45 | Outpatient (REF) | payer OTHER, SELFPAY | LOC: RCS 08:45 | PROVIDERS: ATTENDING PHYSICIAN Nurse Practitioner; FAMILY PHYSICIAN Nurse Practitioner Family | DX: R94.31 Abnormal electrocardiogram [ECG] [EKG] (principal) | CPT/HCPCS: 93017; 93350 ==

== ENCOUNTER → 2024-01-13 10:56 | Outpatient (REF) | payer OTHER, SELFPAY | LOC: RAD 10:56 | PROVIDERS: ATTENDING PHYSICIAN Nurse Practitioner Family | DX: J18.9 Pneumonia, unspecified organism (principal) | CPT/HCPCS: 71046 ==

== ENCOUNTER → 2024-02-23 13:31 | Outpatient (REF) | payer OTHER, SELFPAY | LOC: DHSLP 13:31 | PROVIDERS: ATTENDING PHYSICIAN Internal Medicine Critical Care Medicine; FAMILY PHYSICIAN Nurse Practitioner Family | DX: G47.30 Sleep apnea, unspecified (principal); R06.83 Snoring | CPT/HCPCS: 95800 ==

== ENCOUNTER 2024-06-12 06:23 | Day surgery (SDC) | payer OTHER, SELFPAY | END 2024-06-12 12:05 | disposition home or self-care (01) | LOC: GI 06:23 | PROVIDERS: ATTENDING PHYSICIAN Internal Medicine Gastroenterology | DX: K51.50 Left sided colitis without complications (principal); Q43.8 Other specified congenital malformations of intestine | CPT/HCPCS: 45380; 88305 ==

== ENCOUNTER → 2024-07-27 11:23 | Outpatient (REF) | payer OTHER, SELFPAY | LOC: RAD 11:23 | PROVIDERS: ATTENDING PHYSICIAN Nurse Practitioner Family | DX: M54.50 Low back pain, unspecified (principal) | CPT/HCPCS: 72110 ==

== ENCOUNTER → 2024-08-24 14:56 | Outpatient (REF) | payer OTHER, SELFPAY | LOC: MRI 3T 14:56 | PROVIDERS: ATTENDING PHYSICIAN Pain Medicine Interventional Pain Medicine; FAMILY PHYSICIAN Nurse Practitioner Family | DX: M54.16 Radiculopathy, lumbar region (principal) | CPT/HCPCS: 72148 ==